=== PATIENT | female | born 1990 | race African-American/Black ===

== ENCOUNTER 2018-03-26 10:24 | Emergency (ER) | payer SELFPAY ==
[~2018-03-26] VITALS: Ht 154.9 cm; Wt 68.0 kg
[2018-03-26 10:51] VITALS: BP_SYST 127
[2018-03-26 11:18] VITALS: BP_SYST 124
== END 2018-03-26 11:18 | disposition home or self-care (01) ==
LOC: SED 10:24
DX: N75.0 Cyst of Bartholin's gland (principal); Z88.2 Allergy status to sulfonamides
CPT/HCPCS: 99283

== ENCOUNTER 2018-03-30 18:16 | Emergency (ER) | payer MEDICAID ==
[~2018-03-30] VITALS: Ht 154.9 cm; Wt 70.3 kg
[2018-03-30 18:28] VITALS: BP_SYST 117
[2018-03-30 19:43] VITALS: BP_SYST 119
== END 2018-03-30 19:43 | disposition home or self-care (01) ==
LOC: SED 18:16
DX: N75.0 Cyst of Bartholin's gland (principal); Z88.2 Allergy status to sulfonamides
CPT/HCPCS: 81025; 99283

== ENCOUNTER 2021-08-06 14:09 | Inpatient (IN) | payer BC, SELFPAY ==
[~2021-08-06] VITALS: Ht 154.9 cm; Wt 80.3 kg
[2021-08-06] MEDS ORDERED: LR 1,000 ML IV SCH (18:00)
[2021-08-06] MEDS ORDERED: OXYTOCIN/0.9 % SODIUM CHLORIDE 1,000 ML IV SCH (18:00)
[2021-08-06] MEDS ORDERED: LR 500 ML IV ONE (18:00)
[2021-08-06] MEDS ORDERED: TERBUTALINE SULFATE 1 MG/ML VIAL SUBCUT ONE (18:00)
[2021-08-06] MEDS ORDERED: NALBUPHINE HCL 10 MG/ML AMP IVP PRN (18:00)
[2021-08-06 18:27] VITALS: BP_SYST 137
[2021-08-06] MEDS ORDERED: FLU VACC QS2021-22(6MOS UP)/PF 0.5 ML/SYR SYRINGE I.M. PRN (18:30)
[2021-08-06 18:56] LABS: BASOPHILS % (AUTO) 0.3 % (0.0-2.0); EOSINOPHILS % (AUTO) 0.2 % (0.0-4.0); HEMATOCRIT 35.2 % (36-48); HEMOGLOBIN 11.9 g/dL (12.0-16.0); LYMPHOCYTES % (AUTO) 19.2 % (20.5-51.5); MEAN CORPUSCULAR HEMOGLOBIN 33 pg (27-31); MEAN CORPUSCULAR HGB CONC 34 % (32-36); MEAN CORPUSCULAR VOLUME 99 fL (79.0-98.0); MONOCYTES % (AUTO) 7.3 % (1.7-9.3); PLATELET COUNT (AUTO) 170 K/uL (130-430); RED BLOOD CELL COUNT(AUTO) 3.57 MIL/uL (4.2-6.2); RED CELL DISTRIBUTION WIDTH 13.9 % (9.0-15.0); WHITE BLOOD COUNT (AUTO) 8.8 K/uL (4.8-10.8)
[2021-08-06 18:57] LABS: LYMPHOCYTES # (AUTO) 1.7 K/uL (1.0-5.5); MONOCYTES # (AUTO) 0.6 K/uL (0.0-1.0); NEUTROPHILS # (AUTO) 6.4 K/uL (1.8-7.7)
[2021-08-06] MEDS ORDERED: TEMAZEPAM 15 MG CAPSULE PO PRN (21:00)
[2021-08-07] MEDS ORDERED: fentaNYL CITRATE/PF 100 MCG/2 ML AMP ONE (09:00)
[2021-08-07] MEDS ORDERED: ROPIVACAINE HCL/PF 0.2% 200 ML ONE (09:00)
[2021-08-07] MEDS ORDERED: FENT2mCg/mL-ROPIVA0.2%/NS EPID 200 ML EP SCH (11:45)
[2021-08-07] MEDS ORDERED: ROPIVACAINE HCL/PF 0.2% 100 ML EP SCH ×2 (11:45→23:00)
[2021-08-07] MEDS ORDERED: ePHEDrine sulfate 50 MG/ML VIAL IVP PRN (11:45)
[2021-08-07] MEDS ORDERED: LR 500 ML IV ONE (11:45)
[2021-08-07] MEDS ORDERED: IBUPROFEN 600 MG TABLET ONE (22:14)
[2021-08-07] MEDS ORDERED: DOCUSATE SODIUM 100 MG CAPSULE PO SCH (22:45)
[2021-08-07] MEDS ORDERED: OXYTOCIN/0.9 % SODIUM CHLORIDE 1,000 ML IV SCH (22:45)
[2021-08-07] MEDS ORDERED: OXYTOCIN/0.9 % SODIUM CHLORIDE 1,000 ML IV ONE (22:45)
[2021-08-07] MEDS ORDERED: ACETAMINOPHEN 325 MG TABLET PO PRN (22:45)
[2021-08-07] MEDS ORDERED: DIPH-TET-PERTUS Vaccine 0.5 ML VIAL (ADACEL) I.M. PRN (22:45)
[2021-08-07] MEDS ORDERED: HYDROcodone/ACETAMIN 5-325 MG TAB (NORCO/ VICODIN) PO PRN (22:45)
[2021-08-08] MEDS: HYDROcodone/ACETAMIN 5-325 MG TAB (NORCO/ VICODIN) PO PRN ×2 (00:11→05:14)
[2021-08-08] MEDS ORDERED: RHO(D) IMMUNE GLOBULIN/MALTOSE 1500 UNITS/1.3 ML (WINHRO) IM PRN (02:45)
[2021-08-08] MEDS: IBUPROFEN 600 MG TABLET PO SCH ×3 (06:08→18:03)
[2021-08-08 07:47] LABS: BASOPHILS % (AUTO) 0.4 % (0.0-2.0); EOSINOPHILS # (AUTO) 0.1 K/uL (0.0-0.4); EOSINOPHILS % (AUTO) 0.8 % (0.0-4.0); HEMATOCRIT 33.3 % (36-48); HEMOGLOBIN 11.2 g/dL (12.0-16.0); LYMPHOCYTES # (AUTO) 2.6 K/uL (1.0-5.5); LYMPHOCYTES % (AUTO) 25.4 % (20.5-51.5); MEAN CORPUSCULAR HEMOGLOBIN 33 pg (27-31); MEAN CORPUSCULAR HGB CONC 34 % (32-36); MEAN CORPUSCULAR VOLUME 99 fL (79.0-98.0); MONOCYTES # (AUTO) 0.6 K/uL (0.0-1.0); MONOCYTES % (AUTO) 6.1 % (1.7-9.3); NEUTROPHILS # (AUTO) 6.9 K/uL (1.8-7.7); NEUTROPHILS % (AUTO) 67.3 % (40.0-70.0); PLATELET COUNT (AUTO) 146 K/uL (130-430); RED BLOOD CELL COUNT(AUTO) 3.37 MIL/uL (4.2-6.2); RED CELL DISTRIBUTION WIDTH 13.6 % (9.0-15.0); WHITE BLOOD COUNT (AUTO) 10.3 K/uL (4.8-10.8)
[2021-08-09] MEDS: HYDROcodone/ACETAMIN 5-325 MG TAB (NORCO/ VICODIN) PO PRN
[2021-08-09] MEDS ORDERED: OXYCODONE/ACETAMINOPHEN 5-325 TABLET PO PRN (04:00)
[2021-08-09] MEDS: IBUPROFEN 600 MG TABLET PO SCH ×2 (05:58)
== END 2021-08-09 11:45 | disposition home or self-care (01) | DRG 807 ==
LOC: SPU 17:06
PROVIDERS: ADMIT Specialist; ATTEND Specialist
PROC: 10D07Z6 Extraction of Products of Conception, Vacuum, Via Natural or Artificial Opening (ICD-10-PCS; principal; 2021-08-07)
PROC: 0HQ9XZZ Repair Perineum Skin, External Approach (ICD-10-PCS; 2021-08-07)
PROC: 3E033VJ Introduction of Other Hormone into Peripheral Vein, Percutaneous Approach (ICD-10-PCS; 2021-08-07)
PROC: 3E0R3BZ Introduction of Anesthetic Agent into Spinal Canal, Percutaneous Approach (ICD-10-PCS; 2021-08-07)
PROC: 3E0R33Z Introduction of Anti-inflammatory into Spinal Canal, Percutaneous Approach (ICD-10-PCS; 2021-08-07)
PROC: 3E0234Z Introduction of Serum, Toxoid and Vaccine into Muscle, Percutaneous Approach (ICD-10-PCS; 2021-08-08)
DX: O69.81X0 Labor and delivery complicated by cord around neck, without compression, not applicable or unspecified (principal); Z37.0 Single live birth; Z20.822 Contact with and (suspected) exposure to COVID-19; O36.8130 Decreased fetal movements, third trimester, not applicable or unspecified; O70.0 First degree perineal laceration during delivery; O43.893 Other placental disorders, third trimester; Z3A.38 38 weeks gestation of pregnancy; Z23 Encounter for immunization
CPT/HCPCS: 36415; 81002; 85025; 86870; 86886; 86900; 86901; 90715; 94760; J2300; J2590; J2790; J3010